=== PATIENT | female | born 1955 ===

== ENCOUNTER 2024-11-28 11:03 | Day surgery (SDC) | payer OTHER ==
[~2024-11-28] VITALS: Ht 157.5 cm; Wt 43.9 kg
[~2024-11-28 11:03] MED LIST: ALBU90OI INH; AMOCLA875 PO; AZIT250 PO; CYCL10 PO; EPINEPhrine HCl 1 MG/ML 1ML Amp ONE; Hair, Skin & N1 EACH PO; NAPR375 PO; OXYACE5T PO; RXCYCL10 PO; RXOXYACE PO
[2024-11-28] MEDS ORDERED: ATORVASTATIN CA20 MG PO (11:52)
[2024-11-28] MEDS ORDERED: MEGE40T PO (11:52)
[2024-11-28] MEDS ORDERED: CeFAZolin Sodium 2,000 MG VIAL ONE (12:09)
[2024-11-28] MEDS ORDERED: Lactated Ringer's 1,000 ML IV ONE (12:13)
[2024-11-28] MEDS ORDERED: Dexmedetomidine HCL 200 MCG / 2 ML ONE (12:14)
[2024-11-28] MEDS ORDERED: Bupivacaine HCl 0.25% 30 ML Injection ONE (12:17)
[2024-11-28] MEDS ORDERED: Midazolam HCl 1MG / ML 2ML Vial ONE (12:18)
--- NOTE | 2024-11-28 12:21 | NUR ---
11/28/24 1221 Calvin Bran, LEFT ARM COVERED IN DRESSING. DR HERNANDEZ STATED IT IS OK NOT TO REMOVE DRESSING PRE-OP. BRYCE NOT DONE D/T DRESSING IN PLACE.
[2024-11-28] MEDS ORDERED: propofoL 20 ML IV ONE (12:38)
[2024-11-28] MEDS ORDERED: Ondansetron HCl 2 MG / ML 2ML Vial ONE ×2 (12:50→13:25)
[2024-11-28] MEDS ORDERED: Dexamethasone Sod Phos 10 MG/ML 1ML VIAL ONE ×2 (12:50→13:25)
[2024-11-28] MEDS ORDERED: Phenylephrine HCl 100 MCG/ML-NS 10MLSYR (1MG/10ML) ONE ×2 (12:51→13:15)
[2024-11-28 14:44] VITALS: BP 133/72
--- NOTE | 2024-11-28 15:45 | NUR ---
11/28/24 1545 Cha Bethea D/C INSTRUCTIONS GIVEN TO PT & PT'S . ALL QUESTIONS ANSWERED & UNDERSTANDING VERBALIZED. IV DC'D, PT TOLERATED WELL. PT GETTING DRESSED W/ HELP FROM AT THIS TIME. PT DENIES PAIN/NAUSEA. PT HAS GLASSES ON. VSS, ON RA, NO VISIBLE SIGNS OF DISTRESS NOTED.
== END 2024-11-28 16:00 | disposition home or self-care (01) ==
LOC: ORSCSDS 11:03 → ORSCMMR 12:45 → ORD 14:15 → ORSCSDS 14:15
PROVIDERS: Orthopaedic Surgery
PROC: 0PSJ04Z Reposition Left Radius with Internal Fixation Device, Open Approach (ICD-10-PCS; principal; 2024-11-28 12:45)
DX: S52.572A Other intraarticular fracture of lower end of left radius, initial encounter for closed fracture (principal); W18.30XA Fall on same level, unspecified, initial encounter; J44.9 Chronic obstructive pulmonary disease, unspecified; E78.5 Hyperlipidemia, unspecified; F17.210 Nicotine dependence, cigarettes, uncomplicated; E78.00 Pure hypercholesterolemia, unspecified; Z79.899 Other long term (current) drug therapy
CPT/HCPCS: C1713; J0171; J0690; J1100; J2250; J2371; J2405; J2704

== ENCOUNTER 2025-02-22 14:22 | Inpatient (IN) | payer OTHER ==
[~2025-02-22] VITALS: Ht 157.5 cm; Wt 40.6 kg
[~2025-02-22 14:22] MED LIST changes: +ATORVASTATIN CA20 MG PO; -EPINEPhrine HCl 1 MG/ML 1ML Amp ONE; +Enoxaparin 40 MG/0.4 ML SYR SC SCH; +MEGE40T PO
[2025-02-22] MEDS ORDERED: Ipratropium/Albuterol SulF 2.5-0.5MG/3 ML Amp INH ONE (14:40)
[2025-02-22 15:33] LABS: BASOPHILS ABSOLUTE AUTO 0.11 K/mm3 (0.00-0.23); BASOPHILS PERCENT AUTO 0 % (0-2); EOSINOPHILS ABSOLUTE AUTO 0.11 K/mm3 (0.00-0.68); EOSINOPHILS PERCENT AUTO 0 % (0-6); Hematocrit 41.3 % (33.0-51.0); Hemoglobin 13.6 g/dL (11.5-16.0); IMMATURE GRAN ABSOLUTE AUTO 0.63 K/mm3 (0.00-0.10); IMMATURE GRAN PERCENT AUTO 3 % (0-1); LYMPHOCYTES PERCENT AUTO 4 % (21-46); MONOCYTES ABSOLUTE AUTO 0.62 K/mm3 (0.16-1.47); MONOCYTES PERCENT AUTO 3 % (4-13); Mean Corpuscular HGB 31.6 pg (26.0-34.0); Mean Corpuscular HGB Conc 32.9 g/dL (31.5-36.5); Mean Corpuscular Volume 96 fL (80-100); Mean Platelet Volume 9.8 fL (9.1-12.4); NEUTROPHILS ABSOLUTE AUTO 22.66 K/mm3 (1.96-9.15); NEUTROPHILS PERCENT AUTO 90 % (41-73); Platelet Count 601 K/mm3 (150-400); RDW Coefficient Variation 13.2 % (11.7-14.2); RDW Standard Deviation 47.1 fL (35.1-46.3); White Blood Cell Count 25.23 K/mm3 (4.00-11.30)
[2025-02-22 16:08] LABS: Albumin, Blood 2.9 g/dL (3.4-5.0); Albumin/Globulin Ratio 0.5 (0.8-1.8); Bilirubin, Total 0.7 mg/dL (0.1-1.0); Bun/Creatinine Ratio 23.4 (12.0-20.0); Calcium, Blood 9.4 mg/dL (8.5-10.1); Creatinine, Blood 0.73 mg/dL (0.40-1.00); Globulin, Blood 5.4 g/dL (2.2-4.0); Total Protein, Blood 8.3 g/dL (6.4-8.2)
[2025-02-22] MEDS ORDERED: Aspirin 325 MG Tab PO ONE (20:50)
[2025-02-22] MEDS ORDERED: Ondansetron HCl 2 MG / ML 2ML Vial IV PRN (23:25)
[2025-02-22] MEDS ORDERED: Enoxaparin 40 MG/0.4 ML SYR SC SCH (23:29)
[2025-02-22] MEDS ORDERED: NS 1,000 ML IV ONE (23:35)
[2025-02-23] VITALS (7 sets, daily range): BP systolic 121–156; BP diastolic 76–101
[2025-02-23] MEDS ORDERED: Albuterol 2.5 MG/3 ML VIAL INH PRN (00:10)
[2025-02-23] MEDS ORDERED: Ipratropium/Albuterol SulF 2.5-0.5MG/3 ML Amp INH SCH (00:10)
[2025-02-23] MEDS ORDERED: Ipratropium/Albuterol SulF 2.5-0.5MG/3 ML Amp ONE (00:12)
[2025-02-23] MEDS ORDERED: MethylPREDNISolone Sod Succ 125 MG Vial IV SCH (03:15)
--- NOTE | 2025-02-23 03:29 | NUR ---
SHIFT SUMMARY NEURO: PT ORIENTED TO PLACE AND SELF. CONTRACTURE IN LEFT HAND. SON STATES PT IS AT BASELINE. PER SON, HE HAS BEEN CARING FOR HER FOR THE PAST TEN WEEKS SINCE THE PT'S HAS . SON STATES HE LIFTS PATIENT FOR TRANSFERS. CARDIAC: NO EDEMA, SINUS TACH. TROPONINS PEAKED AT 285. LOVENOX AND SCD'S IN PLACE. LUNGS: COARSE UPPER LOBES. WET NON-PRODUCTIVE COUGH. 4L NC SKIN: SKIN IN TACT, PROPHYLACTIC MEPILEX PLACED ON SACRAL AREA
[2025-02-23 06:16] LABS: BASOPHILS ABSOLUTE AUTO 0.07 K/mm3 (0.00-0.23); BASOPHILS PERCENT AUTO 0 % (0-2); EOSINOPHILS ABSOLUTE AUTO 0.06 K/mm3 (0.00-0.68); EOSINOPHILS PERCENT AUTO 0 % (0-6); Hematocrit 38.6 % (33.0-51.0); Hemoglobin 12.6 g/dL (11.5-16.0); IMMATURE GRAN ABSOLUTE AUTO 0.28 K/mm3 (0.00-0.10); IMMATURE GRAN PERCENT AUTO 1 % (0-1); LYMPHOCYTES ABSOLUTE AUTO 0.69 K/mm3 (0.84-5.20); LYMPHOCYTES PERCENT AUTO 3 % (21-46); MONOCYTES ABSOLUTE AUTO 0.43 K/mm3 (0.16-1.47); MONOCYTES PERCENT AUTO 2 % (4-13); Mean Corpuscular HGB 31.4 pg (26.0-34.0); Mean Corpuscular HGB Conc 32.6 g/dL (31.5-36.5); Mean Corpuscular Volume 96 fL (80-100); Mean Platelet Volume 9.4 fL (9.1-12.4); NEUTROPHILS ABSOLUTE AUTO 25.98 K/mm3 (1.96-9.15); NEUTROPHILS PERCENT AUTO 94 % (41-73); Platelet Count 530 K/mm3 (150-400); RDW Coefficient Variation 13.1 % (11.7-14.2); RDW Standard Deviation 46.5 fL (35.1-46.3); Red Blood Cell Count 4.01 M/mm3 (3.80-5.20); White Blood Cell Count 27.51 K/mm3 (4.00-11.30)
[2025-02-23 06:36] LABS: Albumin, Blood 2.5 g/dL (3.4-5.0); Albumin/Globulin Ratio 0.5 (0.8-1.8); Bilirubin, Total 0.8 mg/dL (0.1-1.0); Bun/Creatinine Ratio 22.5 (12.0-20.0); Calcium, Blood 8.9 mg/dL (8.5-10.1); Creatinine, Blood 0.62 mg/dL (0.40-1.00); Globulin, Blood 4.7 g/dL (2.2-4.0); Potassium, Blood 3.9 mmol/L (3.5-5.5); Total Protein, Blood 7.2 g/dL (6.4-8.2)
--- NOTE | 2025-02-23 09:57 | NUR ---
PER DR VENEGAS, CHANGE N/S IVF TO 100 PER HOUR CONTINUOUS UNTIL EATING AND DRINKING WELL
[2025-02-23] MEDS ORDERED: NS 1,000 ML IV SCH (10:00)
--- NOTE | 2025-02-23 13:41 | NUR ---
DAUGHTER CALLED, DEN, STATES MOTHER OVERALL GENERAL CONFUSION OVER A YEAR. L LEG WEAK, UNABLE TO WALK NOW, OVER A YEAR WEAK. FELL AND BROKE BOTH WRISTS IN OCTOBER. PINNED. STATES FEELS MAY HAVE DEMENTIA , BUT NOT DIAGNOSED. WILL COME SEE PT THIS EARLENE, AFTER WORK
--- NOTE | 2025-02-23 16:04 | NUR ---
PT PLEASANTLY CONFUSED TODAY. ABLE TO TELL ME ONLY 2000S FOR YEAR THIS AM. NOW ABLE TO TELL ME 2023, WHICH IS CLOSER. DID NOT KNOW MONTH THIS AM. ABLE TO TELL ME JANUARY IS MONTH THIS AFTERNOON. KNOWS 2 CHILDREN NAMES. STATES LIVES NEXT DOOR TO DAUGHTER IN [facility]. DAUGHTER VERIFIED THIS. PT CONTINUES TO REQUEST , WHOM FAMILY STATES IS RECENTLY ABOUT MID DECEMBER. PT DOES NOT RECALL. DAUGHTER STATES SHE FEELS PT HAS DEMENTIA, BUT UNDIAGNOSED. PT ABLE TO STAND WITH 2 ASSISTANCE AND GAIT BELT. CAN ONLY BARELY SHUFFLE LEGS. NOT WELL CONTROLLED. NOT FOLLOWING DIRECTION WELL. NO C/O PAIN. BED IN LOW POSITION, CALL LITE IN REACH, BED ALARM ON FOR SAFETY
[2025-02-24 03:28] VITALS: BP 147/94
[2025-02-24 04:00] LABS: Bicarbonate Venous 24.8 mmol/L (24.0-30.0); PCO2 Venous 25.6 mmHg (38-42); pH Blood Venous 7.54 (7.34-7.37)
[2025-02-24 04:01] LABS: Base Excess Venous -0.6 mmol/L
[2025-02-24 04:48] LABS: BASOPHILS ABSOLUTE AUTO 0.04 K/mm3 (0.00-0.23); BASOPHILS PERCENT AUTO 0 % (0-2); EOSINOPHILS PERCENT AUTO 0 % (0-6); Hematocrit 34.7 % (33.0-51.0); Hemoglobin 11.3 g/dL (11.5-16.0); IMMATURE GRAN ABSOLUTE AUTO 0.16 K/mm3 (0.00-0.10); IMMATURE GRAN PERCENT AUTO 1 % (0-1); LYMPHOCYTES ABSOLUTE AUTO 0.59 K/mm3 (0.84-5.20); LYMPHOCYTES PERCENT AUTO 3 % (21-46); MONOCYTES ABSOLUTE AUTO 0.11 K/mm3 (0.16-1.47); MONOCYTES PERCENT AUTO 1 % (4-13); Mean Corpuscular HGB 31.5 pg (26.0-34.0); Mean Corpuscular HGB Conc 32.6 g/dL (31.5-36.5); Mean Corpuscular Volume 97 fL (80-100); Mean Platelet Volume 9.8 fL (9.1-12.4); NEUTROPHILS PERCENT AUTO 95 % (41-73); Platelet Count 519 K/mm3 (150-400); RDW Coefficient Variation 13.2 % (11.7-14.2); Red Blood Cell Count 3.59 M/mm3 (3.80-5.20)
[2025-02-24 05:07] LABS: Bun/Creatinine Ratio 25.8 (12.0-20.0); Calcium, Blood 8.3 mg/dL (8.5-10.1); Creatinine, Blood 0.58 mg/dL (0.40-1.00); Potassium, Blood 4.1 mmol/L (3.5-5.5)
--- NOTE | 2025-02-24 05:46 | NUR ---
SHIFT SUMMARY- NO ACUTE EVENTS OVERNIGHT
[2025-02-24 08:30] VITALS: BP 157/90
[2025-02-24 12:01] VITALS: BP 148/88
--- NOTE | 2025-02-24 15:41 | NUR ---
MET WITH PT SON. PER SON PT DOES LIVE WITH SON. HE IS WITH HER AT ALL TIMES AND WILL HAVE SOMEONE STAY WITH HER IF HE NEEDS TO LEAVE. IN ADDITION, PT DOES HAVE HOME HEALTH WITH PHYSICAL THERAPY. PER SON, PT IS AT HER BASELINE FOR MENTATION AND ADLS. PT DOES FORGET THAT HER SPOUSE INTERMITTENLY. ANGEL COATES WITH CASE MANAGEMENT NOTIFED. PT SON WOULD LIKE TO CONTINUE CURRENT HOME HEALTH AND DOES NOT WANT TO CONSIDER REHAB AT THIS TIME. SON IS PLEASANT AND EAGER TO LEARN. PER SON, PT DOES NOT EAT VERY MUCH AT ALL WHEN AT HOME. EXPLANED THAT PT HAS HAD INCREASED PO INTAKE SINCE CHANGED TO A MINCED AND MOIST DIET. SON WOULD LIKE MORE INFORMATION ON OPTIONS FOR HOME. DIETITIAN CONSULTED
--- NOTE | 2025-02-24 15:58 | NUR ---
SUMMARY PT NOW MED FLOOR STATUS. D/C TELE. NO ACUTE CHANGES THIS SHIFT. PT HAS BEEN R/A FOR THIS SHIFT. PER NOC RN, WILL REQUIRE 1-2L NC OVERNIGHT. PT IS ALERT AND ORIENTED X2-3. PER SON, PT APPEARS TO BE AT HER BASELINE. PLS SEE PRIOR NOTE FOR DETAILS. 1-2 PERSON STAND PIVOT. PT RECOMMENDS SNF, PT SON WISHES TO STAY WITH CURRENT HOME HEALTH. CONT/INCONT. BSC. BM 02/24. PT HARSH COUGH THIS AFTERNOON. CT NEGATIVE. CURRENTLY WAITING FOR ROOM TO BE CLEANED AND WILL TRANSFER PT.
[2025-02-24 17:08] VITALS: BP 152/87
--- NOTE | 2025-02-24 17:11 | NUR ---
pt transfered to medical floor. all items went with pt at time of transfer. son notifed in person of pending transfer. report given to livier bunch
[2025-02-24 20:10] VITALS: BP 149/89
[2025-02-25 02:41] VITALS: BP 133/79
[2025-02-25 07:05] LABS: Magnesium, Blood 1.7 mg/dL (1.6-2.4); Phosphorus, Blood 2.6 mg/dL (2.5-4.9)
[2025-02-25 08:02] VITALS: BP 156/81
[2025-02-25] MEDS ORDERED: PredniSONE 20 MG Tab PO SCH (09:00)
[2025-02-25] MEDS ORDERED: Thiamine HCl 100 MG Tab PO SCH (09:00)
[2025-02-25] MEDS ORDERED: Multivitamins-Minerals Liquid 15 ML Oral Syringe PO SCH (09:00)
--- NOTE | 2025-02-25 11:37 | NUR ---
Pt. is awake in bed and welcomes my visit. Pt. is pleasant but reserved. Facilitaed a life reivew and listened with empathy and a calming presence. Pt. verbalized that her cesar wasn't a part of her life, but she verbalized that she requested this spiritual care visit. As this visit was introductory in nature we considered matters of family. Pt. displayed evidence of a growing trust and verbilized an interest in prayer. Prayed for the Pt. Pt. verbalized gratitude for the spiritual care visit and welcomed this housekeeping supervisor hotel to return.
[2025-02-25] MEDS ORDERED: B-1100 MG PO (12:33)
[2025-02-25] MEDS ORDERED: PRED20 PO (12:33)
--- NOTE | 2025-02-25 16:00 | NUR ---
PT DISCHARGED TO HOME WITH SON. ALL VALUABLES RETURNED AND SENT HOME WITH THE PT. DISCHARGE INSTRUCTIONS PROVIDED AND EDUCATED ON AT TIME OF DISCHARGE.
== END 2025-02-25 16:08 | disposition home health service (06) | DRG 205 ==
LOC: ER 14:22 → PCU 14:23 → ER 14:23 → PCU 14:23 → MEDS 14:23 → PCU 14:24 → MEDS 02-23 14:53 → PCU 02-24 10:13 → MEDS 02-24 17:02
PROVIDERS: Emergency Medicine; Internal Medicine; ADMIT Internal Medicine
DX: T17.908A Unspecified foreign body in respiratory tract, part unspecified causing other injury, initial encounter (principal); E43 Unspecified severe protein-calorie malnutrition; I21.A1 Myocardial infarction type 2; J96.01 Acute respiratory failure with hypoxia; Z68.1 Body mass index [BMI] 19.9 or less, adult; E87.3 Alkalosis; F17.210 Nicotine dependence, cigarettes, uncomplicated; E78.5 Hyperlipidemia, unspecified; R73.9 Hyperglycemia, unspecified; J44.9 Chronic obstructive pulmonary disease, unspecified; F03.90 Unspecified dementia, unspecified severity, without behavioral disturbance, psychotic disturbance, mood disturbance, and anxiety; E78.1 Pure hyperglyceridemia; D72.829 Elevated white blood cell count, unspecified; Z79.891 Long term (current) use of opiate analgesic; Z88.2 Allergy status to sulfonamides; Z79.899 Other long term (current) drug therapy; X58.XXXA Exposure to other specified factors, initial encounter
CPT/HCPCS: 36415; 70450; 71046; 80048; 80053; 82803; 83036; 83735; 83880; 84100; 84484; 85025; 92526; 92610; 93005; 93010; 93306; 94640; 94664; 94760; 94762; 96372; 96374; 97110; 97161; 97530; 99285-25; A9270; G0378; J1650; J2919; J7030; J7512

== ENCOUNTER 2025-03-08 18:52 | Inpatient (IN) | payer OTHER ==
[~2025-03-08] VITALS: Ht 157.5 cm; Wt 37.0 kg
[~2025-03-08 18:52] MED LIST changes: +B-1100 MG PO; -Enoxaparin 40 MG/0.4 ML SYR SC SCH; +PRED20 PO
[2025-03-08 19:41] LABS: BASOPHILS ABSOLUTE AUTO 0.07 K/mm3 (0.00-0.23); BASOPHILS PERCENT AUTO 0 % (0-2); EOSINOPHILS PERCENT AUTO 0 % (0-6); Hematocrit 35.6 % (33.0-51.0); Hemoglobin 11.7 g/dL (11.5-16.0); IMMATURE GRAN ABSOLUTE AUTO 0.36 K/mm3 (0.00-0.10); IMMATURE GRAN PERCENT AUTO 1 % (0-1); LYMPHOCYTES ABSOLUTE AUTO 0.65 K/mm3 (0.84-5.20); LYMPHOCYTES PERCENT AUTO 2 % (21-46); MONOCYTES ABSOLUTE AUTO 1.17 K/mm3 (0.16-1.47); MONOCYTES PERCENT AUTO 4 % (4-13); Mean Corpuscular HGB 31.5 pg (26.0-34.0); Mean Corpuscular HGB Conc 32.9 g/dL (31.5-36.5); Mean Corpuscular Volume 96 fL (80-100); Mean Platelet Volume 8.9 fL (9.1-12.4); NEUTROPHILS ABSOLUTE AUTO 27.45 K/mm3 (1.96-9.15); NEUTROPHILS PERCENT AUTO 93 % (41-73); Platelet Count 547 K/mm3 (150-400); RDW Coefficient Variation 13.3 % (11.7-14.2); RDW Standard Deviation 46.8 fL (35.1-46.3); Red Blood Cell Count 3.72 M/mm3 (3.80-5.20)
[2025-03-08] MEDS ORDERED: Lactated Ringer's 1,000 ML IV ONE (20:00)
[2025-03-08 20:06] LABS: Albumin, Blood 2.4 g/dL (3.4-5.0); Albumin/Globulin Ratio 0.5 (0.8-1.8); Bilirubin, Total 0.4 mg/dL (0.1-1.0); Bun/Creatinine Ratio 34.9 (12.0-20.0); Calcium, Blood 9.7 mg/dL (8.5-10.1); Creatinine, Blood 0.6 mg/dL (0.40-1.00); Globulin, Blood 5.3 g/dL (2.2-4.0); Potassium, Blood 3.8 mmol/L (3.5-5.5); Total Protein, Blood 7.7 g/dL (6.4-8.2)
[2025-03-08] MEDS ORDERED: Azithromycin 500 MG in NS 250 ML IV ONE (20:20)
[2025-03-08] MEDS ORDERED: CefTRIAXone Sodium 1,000 MG in NS 100 ML IV ONE (20:20)
[2025-03-08 20:50] LABS: D-Dimer, Quantitative 2.5 mg/L FEU (0.00-0.52); International Normalized Ratio 1.1; Prothrombin Time Results 11.7 Sec (9.7-11.5)
[2025-03-08] MEDS ORDERED: Doxycycline Hyclate 100 MG in Dextrose 5% 250 ML IV ONE (21:00)
[2025-03-08] MEDS ORDERED: Acetaminophen 500 MG Tab PO ONE (21:55)
[2025-03-08] MEDS ORDERED: Acetaminophen 650 MG Supp PR ONE (22:15)
[2025-03-08 22:43] LABS: Source, Urine Clean Catch
[2025-03-08 22:48] LABS: Bilirubin, Urine Neg (Neg); Blood, Urine Neg (Neg); Glucose Qualitative, Urine Neg (Neg); Ketones, Urine Neg (Neg); Leukocyte Esterase, Urine Neg (Neg); Nitrite, Urine Pos (Neg); Protein, Urine 1+ (Neg); Urobilinogen, Urine NORM (Normal)
[2025-03-08 22:57] LABS: Appearance, Urine Clear (Clear); Color, Urine Yellow (P-Yellow); Red Blood Cells, Urine Not Seen /hpf (0-2); Squamous Epithelial Cells Rare /hpf (Few)
[2025-03-08 22:58] LABS: Bacteria Rare /hpf
[2025-03-08 23:22] LABS: Influenza A, PCR NEGATIVE (NEGATIVE); Influenza B, PCR NEGATIVE (NEGATIVE); Resp Syncytial Virus, PCR NEGATIVE (NEGATIVE); SARS-Cov-2 (COVID-19) PCR, MMC NEGATIVE (NEGATIVE)
[2025-03-09] MEDS ORDERED: MetroNIDAZOLE 500MG/NS 100 ml 100 ML IV SCH (01:08)
[2025-03-09] MEDS ORDERED: NS 500 ML IV SCH (01:25)
[2025-03-09 01:48] VITALS: BP 130/73
[2025-03-09 02:38] LABS: BASOPHILS ABSOLUTE AUTO 0.07 K/mm3 (0.00-0.23); BASOPHILS PERCENT AUTO 0 % (0-2); EOSINOPHILS ABSOLUTE AUTO 0.02 K/mm3 (0.00-0.68); EOSINOPHILS PERCENT AUTO 0 % (0-6); Hematocrit 30.3 % (33.0-51.0); IMMATURE GRAN ABSOLUTE AUTO 0.41 K/mm3 (0.00-0.10); IMMATURE GRAN PERCENT AUTO 1 % (0-1); LYMPHOCYTES ABSOLUTE AUTO 1.33 K/mm3 (0.84-5.20); LYMPHOCYTES PERCENT AUTO 4 % (21-46); MONOCYTES ABSOLUTE AUTO 1.58 K/mm3 (0.16-1.47); MONOCYTES PERCENT AUTO 5 % (4-13); Mean Corpuscular HGB 31.8 pg (26.0-34.0); Mean Corpuscular Volume 97 fL (80-100); Mean Platelet Volume 8.8 fL (9.1-12.4); NEUTROPHILS ABSOLUTE AUTO 29.05 K/mm3 (1.96-9.15); NEUTROPHILS PERCENT AUTO 89 % (41-73); Platelet Count 431 K/mm3 (150-400); RDW Coefficient Variation 13.3 % (11.7-14.2); RDW Standard Deviation 47.6 fL (35.1-46.3); Red Blood Cell Count 3.14 M/mm3 (3.80-5.20); White Blood Cell Count 32.46 K/mm3 (4.00-11.30)
[2025-03-09] MEDS ORDERED: Acetaminophen 325 MG TABLET PO PRN (02:45)
[2025-03-09 03:04] LABS: Albumin, Blood 1.9 g/dL (3.4-5.0); Albumin/Globulin Ratio 0.4 (0.8-1.8); Bilirubin, Total 0.5 mg/dL (0.1-1.0); Bun/Creatinine Ratio 29.8 (12.0-20.0); Calcium, Blood 8.7 mg/dL (8.5-10.1); Creatinine, Blood 0.57 mg/dL (0.40-1.00); Globulin, Blood 4.3 g/dL (2.2-4.0); Magnesium, Blood 1.6 mg/dL (1.6-2.4); Potassium, Blood 3.1 mmol/L (3.5-5.5); Total Protein, Blood 6.2 g/dL (6.4-8.2)
--- NOTE | 2025-03-09 03:26 | NUR ---
PATIENT NEW ADMISSION DIAGNOSIS SEPSIS, ALERT ORIENTED X 2, ON NORMAL SALINE IV RUNING.VITAL SIGNS WITHIN NORMAL RANGE ,SUNCTIONED IN ED FOR LARGE AMOUNT OF SECRETIONS,SHE IS ON NPO,SUNCTION PUMP ATTACHED FOR POSSIBLE SUNCTIONG.SHE IS DNR, SKIN INTACT WITH LITTLE REDNESS AT SACRAL REGION DRY AND WARM.ON 2 LITERS OF OXYGEN MOUTH BREATHER.SHE ON TELE WITH SINUS RYTHM. PATIENT SLEEPING WITH CALL LIGHT ENRICH.
[2025-03-09 08:07] VITALS: BP 129/76
[2025-03-09] MEDS ORDERED: Potassium Chloride 10 Meq Tablet SA PO ONE (08:50)
[2025-03-09 14:30] VITALS: BP 186/99
[2025-03-09] MEDS ORDERED: NS 1,000 ML IV SCH (14:45)
--- NOTE | 2025-03-09 14:45 | NUR ---
CALLED DR. BECKWITH REGUARDING PATIENT'S BLOOD PRESSURE; AWAITING ORDERS
[2025-03-09] MEDS ORDERED: HydrALAZINE HCl 20 MG / ML 1ML Vial IV PRN (14:50)
[2025-03-09 15:22] VITALS: BP 182/106
[2025-03-09] MEDS ORDERED: Labetalol HCL 5 MG/ML 4ML Injection (Single Dose) IV PRN (17:20)
[2025-03-09 17:31] VITALS: BP 142/81
--- NOTE | 2025-03-09 17:34 | NUR ---
SHIFT SUMMARY: PATIENT IS A&OX3-CONFUSED, HOLLERS OUT, DOESN'T USE CALL LIGHT, BEDREST, NPO, AND INCONTINENT. PATIENT'S SON NAEEM CAME IN THIS AFTERNOON, THE PATIENT LIVES WITH HIM. HE STATES THE PATIENT DOESN'T WALK, AND HAS BEEN EATING AND DRINKING. HE STATES THAT HE DOES NOT RECALL THE PATIENT BEING NPO PRIOR HOSPITALIZATION. DISCUSSED THAT THE PATIENT IS NPO AND WHY AND THE PLAN; IV FLUIDS, ORAL CARE, IV ANTIBIOTICS, DIETARY AND PALLATIVE CARE CONSULT. PATIENT'S SON AGREEABLE WITH PLAN AND PLANS ON BEING HERE TOMORROW. PATIENT IS BED, PUREWICK IN PLACE, HAD AN INCONTINENT BM, IV FLUIDS GOING, LIGHT BULB REPLACER GIVEN IV LABETALOL FOR A HEART RATE OF 120-130'S SUSTAINING; DR. BECKWITH NOTIFIED AND PLACED ORDER. SHE KEEPS SAYING SHE IS COLD, SHE IS SWEATING, NO FEVERS, PATIENT'S SON STATES THAT SHE USES A HEATED BLANKET AT HOME AND SITS IN CHAIR BY THE PELLET STOVE. PATIENT'S CALL LIGHT WITHIN REACH, NO SIGNS OR SYMPTOMS OF DISTRESS, BED ALARM ON, PLAN OF CARE ONGOING. CURRENT HR IS 98 ON TELE.
--- NOTE | 2025-03-09 17:56 | NUR ---
HAVE BEEN UNABLE TO COLLECT A SPUTUM SPECIMEN DUE TO PATIENT NOT PRODUCING A SAMPLE
[2025-03-09 20:23] VITALS: BP 144/79
[2025-03-09] MEDS ORDERED: CefTRIAXone Sodium 1,000 MG in NS 100 ML IV SCH (21:00)
[2025-03-10] VITALS (7 sets, daily range): BP systolic 150–170; BP diastolic 70–92
--- NOTE | 2025-03-10 04:03 | NUR ---
SHIFT SUMMARY REPORT PATIENT AWAKE ,SLEPT LITTLE , SLIGHTLY DISORIENTED ,COMPLAINED OF HOT FLUSHES BLANKETS REMOVED AND COVERED WITH LIGHT TOP SHEEET,ON AUSCULTATION PATIENT CHEST CLEAR BREATHING SLIGHTLY LABOROUS,CRACKLES HARD BILATERALLY AT THE LUNG SIDE,ON PEUWICK DRAINING CONCENTERED URINE , NPO, HAS A PATENT IV WITH 1000MG OF N/S INSITU,AT THE LEFT ACF. HAS CONTRACTURE OF THE LEFT ARM.SHE RECIVED ALL HER DUE MED PER EMAR. BED BROUGHT TO LOWEST CALL LIGHT IN REACH.
[2025-03-10 05:48] LABS: BASOPHILS ABSOLUTE AUTO 0.06 K/mm3 (0.00-0.23); BASOPHILS PERCENT AUTO 0 % (0-2); EOSINOPHILS ABSOLUTE AUTO 0.01 K/mm3 (0.00-0.68); EOSINOPHILS PERCENT AUTO 0 % (0-6); Hematocrit 31.4 % (33.0-51.0); Hemoglobin 10.4 g/dL (11.5-16.0); IMMATURE GRAN PERCENT AUTO 1 % (0-1); LYMPHOCYTES ABSOLUTE AUTO 1.03 K/mm3 (0.84-5.20); LYMPHOCYTES PERCENT AUTO 4 % (21-46); MONOCYTES ABSOLUTE AUTO 1.08 K/mm3 (0.16-1.47); MONOCYTES PERCENT AUTO 4 % (4-13); Mean Corpuscular HGB 31.8 pg (26.0-34.0); Mean Corpuscular HGB Conc 33.1 g/dL (31.5-36.5); Mean Corpuscular Volume 96 fL (80-100); Mean Platelet Volume 9.2 fL (9.1-12.4); NEUTROPHILS ABSOLUTE AUTO 25.26 K/mm3 (1.96-9.15); NEUTROPHILS PERCENT AUTO 91 % (41-73); Platelet Count 463 K/mm3 (150-400); RDW Coefficient Variation 13.5 % (11.7-14.2); RDW Standard Deviation 47.8 fL (35.1-46.3); Red Blood Cell Count 3.27 M/mm3 (3.80-5.20); White Blood Cell Count 27.74 K/mm3 (4.00-11.30)
[2025-03-10 06:20] LABS: Albumin, Blood 1.9 g/dL (3.4-5.0); Albumin/Globulin Ratio 0.4 (0.8-1.8); Bilirubin, Total 0.5 mg/dL (0.1-1.0); Bun/Creatinine Ratio 27.2 (12.0-20.0); Creatinine, Blood 0.55 mg/dL (0.40-1.00); Globulin, Blood 4.4 g/dL (2.2-4.0); Potassium, Blood 3.7 mmol/L (3.5-5.5); Total Protein, Blood 6.3 g/dL (6.4-8.2)
[2025-03-10] MEDS ORDERED: TPN Consult Notification XX ONE (10:20)
[2025-03-10] MEDS ORDERED: FLUT1DIS5 INH (12:59)
--- NOTE | 2025-03-10 15:14 | NUR ---
NO CHANGES FOR PT. PT AO TO SLEF AND PLACE. NO C/O PAIN SOB OR CHEST PAIN
--- NOTE | 2025-03-10 15:17 | NUR ---
PT WILL BE STARTED ON TPN AROUN 1700
[2025-03-10] MEDS ORDERED: Parenteral Electolytes 40 ML,Potassium Phosphate Dibasic 30 MM,Multivitamins 10 ML,ZINC... IV SCH (17:00)
[2025-03-10] MEDS ORDERED: Enoxaparin 40 MG/0.4 ML SYR SC SCH (19:00)
[2025-03-11 00:46] VITALS: BP 135/76
--- NOTE | 2025-03-11 04:03 | NUR ---
SHIFT SUMMARY PATIENT HAD NO ACUTE CHANGES. AXOX 2 WITH CONFUSION CALLING OUT "BILL" AT TIMES BEDREST. DENIES CHEST PAIN, SOB, AND N/V. HYPERTENSIVE AND IV APRESOLINE 10 MG GIVEN FOR SBP >160 X ONE. PIV INTACT. TPN INFUSING @ 52 mL/HR. IV ABXS INFUSED. CBG 108. PUREWICK IN PLACE. ON 2L O2 NC. DAUGHTER PRESENT AT SHIFT CHANGE. CALL LIGHT IN REACH. BED IN LOWEST POSITION. WILL CONTINUE TO MONITOR UNTIL DAY SHIFT NURSE ASSUMES CARE.
[2025-03-11 04:21] VITALS: BP 143/79
[2025-03-11 06:04] LABS: Magnesium, Blood 1.8 mg/dL (1.6-2.4); Phosphorus, Blood 2.6 mg/dL (2.5-4.9); Triglycerides 43 mg/dL (30-160)
[2025-03-11 07:27] VITALS: BP 159/88
--- NOTE | 2025-03-11 08:17 | NUR ---
ASSUMPTION OF CARE: ASSUMED CARE OF PATIENT. AWAKE ASLEEP DURING SHIFT CHANGE REPORT. LYING IN BED WITH GLASSES ON, WATCHING TV. TACHYPNIC c COUGH; OXYGEN PRONGS PLACED BACK IN NARES THEY WERE OFF TO SIDE OF FACE. TELE SINUS @ 97. DC'd SHORTLY AFTER SHFIT CHANGE. REQUESTING SOMETHING TO DRINK AND A BANANA DESPITE NPO STATUS. PPN @ 52mL/hr. BED IN LOWEST POSITION. CALL LIGHT WITHIN REACH. NO ACUTE NEEDS.
[2025-03-11 15:04] VITALS: BP 158/91
--- NOTE | 2025-03-11 17:35 | NUR ---
PALLIATIVE CARE VISIT: MET WITH PT AND SON NAEEM, DAUGHTER DEN IN PT ROOM. DISCUSSED CONCERNS OF NEW FINDINGS, NODULE ON LLL AND RECOMMENDATIONS FOR OUTPATIENT PET SCAN. DISCUSSED CONCERNS WITH CURRENT ILLNESS AND NEED FOR PPN DUE TO SWALLOWING DIFFICULTIES AND RISK FOR ASPIRATION. PT HAS POOR ORAL INTAKE AND WOULD NEED TO GAIN STRENGTH FOR OUTPATIENT TREATMENT FOR POSSIBLE MALIGNANCY TO LUNG. ALSO DISCUSSED OPTION FOR HOSPICE SERVICES VS CURATIVE TREATMENT. FAMILY AGREE HOSPICE SERVICES WOULD BE MOST BENEFICIAL AT THIS TIME. PT STATES MULTIPLE TIMES DURING VISIT "I JUST WANT TO GO HOME". NAEEM STATES HIS MOM HAS HOME HEALTH SERVICES WITH [facility]. HE IS AGREEABLE TO TRANSITIONING HER TO HOSPICE AND CAN BRING HIS MOM HOME SOON TOMORROW IF HOSPICE CAN DO ADMISSION. SON STATES HE WOULD LIKE A HOSPITAL BED AND BEDSIDE TABLE. CALLED MANA AT [facility] AND SHE STATES SHE CAN CORDINATE ADMISSION TO HAPPEN TOMORROW. DR. MANN AND BEDSIDE RN NOTIFIED OF ABOVE PLAN OF CARE. MATTY LAGUERRE HAD BEEN NOTIFIED EARLIER OF POTENTIAL FOR ADMISSION TO HOSPICE. PT C/O HER O2 IRRITATING HER NOSE AND WAS TAKING NASAL CANNULA AND PLACING UNDER CHIN. SET-UP HUMIDIFIED OXYGEN FOR COMFORT. PT HAD NO OTHER COMPLAINTS OTHER THAN SHE WANTS TO GO HOME.
--- NOTE | 2025-03-11 19:27 | NUR ---
[id number] SUMMARY: A&Ox3-4. PLEASANT AND COOPERATIVE c MOST CARE. CALLS OUT INTO HALLWAY FOR ASSISTANCE AND DOES NOT UTLIZE CALL LIGHT. INCONTINENT OF BLADDER AND BOWEL; ATTENDS IN PLACE. SEEN BY ST AGAIN AND IS STRICTLY NPO D/T DYSPHAGIA. PPN RUNNING @ 52mL/hr VIA RAC. TELE DCd TODAY. RESPIRATORY PANELS ALL CANCELED PER DR. MANN. [id number] MEETING c FAMILY AND PALLIATIVE CARE; DECISION TO MAINTAIN CARE WHILE IN HOSPITAL BUT WILL DC HOME c [facility]. BED IN LOWEST POSITION. CALL LIGHT WITHIN REACH. REPORT TO ONCOMING NURSE.
[2025-03-11 19:42] VITALS: BP 177/86
[2025-03-12 00:42] VITALS: BP 167/86
[2025-03-12 04:52] VITALS: BP 170/82
--- NOTE | 2025-03-12 05:42 | NUR ---
SUMMARY: PT A/OX3-4 BUT IS FORGETFULL AT TIMES AND FREQUENTLY CALLS OUT "HELP" FOR NON-ACUTE NEEDS. ORAL SWABS AND MOUTH CARE PROVIDED FOR REPEATED C/O "DRY MOUTH" AND SHE OCC.REPORTED FEELING UNABLE TO BREATH UPON REMOVING HER O2. PT MAINTAINS SPO2>90% ON RA W/1L O2 VIA NC REPLACED PRN FOR COMFORT. SHE REMAINS NPO W/PPN INFUSING AT 52 ML/HR AND IV ABX RECIEVED PER EMAR. SBP WAS >160 AND PRN HYDRALZINE PROVIDED PER PARAMETERS. TURN SCEDULE MAINTAINED AND PILLOWS PLACED FOR SUPPORT OF BONY PROMINENCES. L.WRIST CONTRACTED AND SHE PREFERS R.LEG BENT. EXCORIATION NOTED TO R.GLUTEAL CLEFT AND MEPILEX WAS REPLACED D/T BECOMING SOILD W/FREQ LOOSE BM'S THIS SHIFT. SHE'S INCONTINENT W/ATTENDS CHANGED PRN. NO ACUTE CHANGES. WILL REPORT TO DAY RN.
[2025-03-12 06:46] LABS: Bun/Creatinine Ratio 49.6 (12.0-20.0); Calcium, Blood 8.6 mg/dL (8.5-10.1); Creatinine, Blood 0.48 mg/dL (0.40-1.00); Phosphorus, Blood 2.4 mg/dL (2.5-4.9); Potassium, Blood 3.5 mmol/L (3.5-5.5)
[2025-03-12 07:25] VITALS: BP 161/85
--- NOTE | 2025-03-12 07:41 | NUR ---
ASSUMPTION OF CARE: ASSUMED CARE OF PATIENT. AWAKE ASLEEP DURING SHIFT CHANGE REPORT, CALLING OUT FOR "BILL". WHEN ASKED IF SHE NEEDS ANYTHING SHE REPLIES "MY " OR "ICE CREAM" OR "SOMETHING TO DRINK". STRICT NPO STATUS D/T ASPIRATION RISK. SUCTION @ BEDSIDE. 1LPM/NC BUT HAD SLIPPED TO BELOW CHIN. REPLACED BACK INTO NARES. BED IN LOWEST POSITION. CALL LIGHT WITHIN REACH.
[2025-03-12] MEDS ORDERED: TPN Consult Notification XX ONE (08:15)
[2025-03-12] MEDS ORDERED: LORazepam 2 MG/ML 1ML Injection IV PRN (12:00)
--- NOTE | 2025-03-12 16:42 | NUR ---
DISCHARGE SUMMARY: A&Ox1-3. PLEASANT AND COOPERATIVE WITH CARE. CALLS OUT INTO HALLWAY FOR "BILL" AND WHEN ASKED WHAT SHE NEEDS, STATES SHE WANTS ICE CREAM OR SOMETHING TO DRINK, DESPITE STRICT NPO STATUS. YELLS "HELP" WHEN DYSPNIC; OFTEN FOUND TO HAVE OXYGEN OUTSIDE OF NARES. MOUTH BREATHES AND ORAL CARE PROVIDED SEVERAL TIMES AND CONTINUES TO HAVE DRY MOUTH. INCONTINENT OF MULTIPLE LOOSE STOOLS TODAY. BEDBOUND; UNABLE TO STAND OR TRANSFER AND SON HAD TO PHYSICALLY TRANSFER HER FROM BED TO WHEELCHAIR AND WHEELCHAIR TO CAR TO GET HOME. INSTRUCTED TO FOLLOW-UP WITH PCP AND WILL BE ADMITTED TO [facility] [place]. PORTABLE OXYGEN DELIVERED. LEFT FLOOR AT WITH ALL BELONGINGS AND DISCHARGE PACKET, ESCORTED BY TWAN RIVAS. TRANSPORTATION PROVIDED BY SON VIA POV.
[2025-03-12] MEDS ORDERED: Parenteral Electolytes 40 ML,Potassium Phosphate Dibasic 30 MM,Multivitamins 10 ML,ZINC... IV SCH (17:00)
== END 2025-03-12 15:14 | disposition hospice, home (50) | DRG 871 ==
LOC: ER 18:52 → MEDS 03-09 00:43 → ENPENDDIS 03-12 12:58 → MEDS 03-12 15:14
PROVIDERS: Family Medicine; Internal Medicine; Student in an Organized Health Care Education/Training Program; ADMIT Internal Medicine
DX: A41.9 Sepsis, unspecified organism (principal); E43 Unspecified severe protein-calorie malnutrition; J18.9 Pneumonia, unspecified organism; J69.0 Pneumonitis due to inhalation of food and vomit; G91.0 Communicating hydrocephalus; M48.54XA Collapsed vertebra, not elsewhere classified, thoracic region, initial encounter for fracture; E87.1 Hypo-osmolality and hyponatremia; Z51.5 Encounter for palliative care; Z66 Do not resuscitate; N39.0 Urinary tract infection, site not specified; C34.32 Malignant neoplasm of lower lobe, left bronchus or lung; J44.0 Chronic obstructive pulmonary disease with (acute) lower respiratory infection; Z68.1 Body mass index [BMI] 19.9 or less, adult; F03.90 Unspecified dementia, unspecified severity, without behavioral disturbance, psychotic disturbance, mood disturbance, and anxiety; J43.9 Emphysema, unspecified; M25.532 Pain in left wrist; M25.531 Pain in right wrist; R79.1 Abnormal coagulation profile; E86.1 Hypovolemia; R94.31 Abnormal electrocardiogram [ECG] [EKG]; I25.2 Old myocardial infarction; Z88.2 Allergy status to sulfonamides; Z79.52 Long term (current) use of systemic steroids; Z87.891 Personal history of nicotine dependence; Z79.891 Long term (current) use of opiate analgesic
CPT/HCPCS: 0241U; 31720; 36415; 51701; 70450; 71046; 71260; 73100; 80048; 80053; 81001; 82947; 83605; 83735; 84100; 84145; 84478; 84484; 85025; 85379; 85610; 85730; 87040; 87086; 92526; 92610; 93005; 93010; 94640; 96365-59; 96368; 99285-25; A9270; J0360; J0456; J0696; J1650; J3411; J7030; J7040; J7050; J7060; J7120; Q9967